=== PATIENT | male | born 1995 | race African-American/Black ===

== ENCOUNTER 2018-05-24 21:09 | Emergency (ER) | payer MEDICAID ==
[~2018-05-24] VITALS: Ht 180.3 cm; Wt 127.0 kg
[2018-05-25] MEDS ORDERED: PREDNISONE 20MG TABLET PO STA (00:06)
[2018-05-25] MEDS ORDERED: IBUPROFEN 800MG TABLET PO ONE (00:15)
[2018-05-25] MEDS ORDERED: LEVOFLOXACIN 500MG TABLET PO ONE (00:15)
[2018-05-25] MEDS ORDERED: IPRATROPIUM/ALBUTEROL 0.5-3(2.5)MG/3ML NEB HHN ONE (00:15)
[2018-05-25 02:26] VITALS: BP 126/68
== END 2018-05-25 02:26 | disposition home or self-care (01) ==
LOC: ER 21:09
DX: J45.909 Unspecified asthma, uncomplicated (principal)
CPT/HCPCS: 71045; 94640; 99283; J7512; J7620

== ENCOUNTER 2022-02-24 09:59 | Emergency (ER) | payer MEDICAID, OTHER ==
[~2022-02-24] VITALS: Ht 177.8 cm; Wt 123.0 kg
[2022-02-24 10:17] VITALS: BP 164/93
[2022-02-24] MEDS ORDERED: ACETAMINOPHEN 325MG TABLET PO ONE (12:00)
[2022-02-24] MEDS ORDERED: TOPUD PO (12:28)
== END 2022-02-24 13:39 | disposition home or self-care (01) ==
LOC: ER 09:59
DX: M79.622 Pain in left upper arm (principal); J45.909 Unspecified asthma, uncomplicated; V43.52XA Car driver injured in collision with other type car in traffic accident, initial encounter; Y93.89 Activity, other specified; Y92.410 Unspecified street and highway as the place of occurrence of the external cause
CPT/HCPCS: 73060; 73090; 99284